=== PATIENT | male | born 1965 | race Caucasian/White ===

== ENCOUNTER 2020-04-09 10:29 | Emergency (ER) | payer BC ==
[2020-04-09 11:01] VITALS: BP 126/79; PULSE 79
--- NOTE | 2020-04-09 11:18 | EDM.PDOC ---
ED HPI GENERAL MEDICAL PROBLEM - General Chief Complaint: General Stated Complaint: NEEDS COVID TEST Time Seen by Provider: 04/09/20 11:07 Source of Information: Reports: Patient History Limitations: Reports: No Limitations - History of Present Illness INITIAL COMMENTS - FREE TEXT/NARRATIVE: Patient is a 54 year old male presenting to the emergency department today with the request to be tested for COVID. He has no symptoms of COVID; however, his had been sick with a cough and flu s/s for 1 week and he unfortunately found her in bed this morning. He is required to be tested for COVID before he can proceed with arrangements. He denies fever, chill, nausea, vomiting, diarrhea, or SOB. He states that he does have a mild cough, but that this is chronic d/t his lisinopril. - Related Data Allergies Allergy/AdvReac Type Severity Reaction Status Date / Time No Known Allergies Allergy Verified 04/09/20 10:52 Home Meds: Home Meds Hydrochlorothiazide/Lisinopril [Lisinopril/HCTZ 20-12.5 MG] 1 tab PO DAILY 04/11/15 [History] Lansoprazole [Prevacid] 15 mg PO DAILY 04/11/15 [History] Simvastatin [Zocor] 10 mg PO BEDTIME 04/11/15 [History] Past Medical History Cardiovascular History: Reports: High Cholesterol, Hypertension Other Gastrointestinal History: hemachromatosis Social & Family History - Tobacco Use Smoking Status *Q: Current Every Day Smoker Years of Tobacco use: 30 Packs/Tins Daily: 0.5 - Caffeine Use Caffeine Use: Reports: Soda - Recreational Drug Use Recreational Drug Use: No ED ROS GENERAL - Review of Systems Review Of Systems: Comprehensive ROS is negative, except as noted in HPI. ED EXAM, GENERAL - Physical Exam Exam: See Below Exam Limited By: No Limitations General Appearance: Alert, WD/WN, No Apparent Distress Respiratory/Chest: No Respiratory Distress, Lungs Clear, Normal Breath Sounds, No Accessory Muscle Use, Chest Non-Tender Cardiovascular: Normal Peripheral Pulses, Regular Rate, Rhythm, No Edema, No Gallop, No JVD, No Murmur, No Rub GI/Abdominal: Normal Bowel Sounds, Soft, Non-Tender, No Organomegaly, No Distention, No Abnormal Bruit, No Mass Neurological: Alert, Oriented, CN II-XII Intact, Normal Cognition, Normal Gait, Normal Reflexes, No Motor/Sensory Deficits Psychiatric: Normal Affect, Normal Mood Skin Exam: Warm, Dry, Intact, Normal Color, No Rash Course - Vital Signs Last Recorded V/S: Last Vital Signs Temp 97.9 F 04/09/20 10:57 Pulse 79 04/09/20 10:57 Resp 18 04/09/20 10:57 BP 126/79 04/09/20 10:57 Pulse Ox 99 04/09/20 10:57 - Orders/Labs/Meds Orders: Active Orders 24 hr Category Date Time Status CORONAVIRUS COVID-19 PCR PHL Routine Lab 04/09/20 11:08 Ordered Departure - Departure Time of Disposition: 11:16 Disposition: Home, Self-Care 01 Condition: Good Clinical Impression: Encounter for laboratory testing for COVID-19 virus - Discharge Information *PRESCRIPTION DRUG MONITORING PROGRAM REVIEWED*: No *COPY OF PRESCRIPTION DRUG MONITORING REPORT IN PATIENT ADALBERTO: No Referrals: Debra Jimenez MD [Primary Care Provider] - Additional Instructions: You were seen in the emergency department today with the request of being tested for COVID. A COVID test has been completed and you will be notified of the results when they are available which is generally in 24-72 hours. Return to ER if you should develop and symptoms of concern that require medical evaluation. My condolences to you and your family on your loss. Sepsis Event Note (ED) - Evaluation Sepsis Screening Result: No Definite Risk - Focused Exam Vital Signs: Vital Signs Temp Pulse Resp BP Pulse Ox 04/09/20 10:57 97.9 F 79 18 126/79 99 - My Orders Last 24 Hours: My Active Orders 04/09/20 11:08 CORONAVIRUS COVID-19 PCR PHL Routine - Assessment/Plan Last 24 Hours: My Active Orders 04/09/20 11:08 CORONAVIRUS COVID-19 PCR PHL Routine
== END 2020-04-09 11:35 | disposition home or self-care (01) ==
LOC: JD.ED 10:29
DX: Z20.828 Contact with and (suspected) exposure to other viral communicable diseases (principal); I10 Essential (primary) hypertension; E78.00 Pure hypercholesterolemia, unspecified; F17.210 Nicotine dependence, cigarettes, uncomplicated; Z79.899 Other long term (current) drug therapy
CPT/HCPCS: 99282; 99283; U0002